=== PATIENT | female | born 1995 | race Caucasian/White ===

== ENCOUNTER 2023-01-20 13:40 | Emergency (ER) | payer MEDICAID, SELFPAY ==
--- NOTE | ~2023-01-20 | CT_ITS ---
EXAMINATION: CT ABDOMEN AND PELVIS WITHOUT CONTRAST CLINICAL INFORMATION: Patient ate a tampon. Abdominal pain. Rule out obstruction. COMPARISON: None available. TECHNIQUE: Multidetector volumetric imaging was performed from the superior aspect of the liver through the pubic symphysis. Sagittal and coronal reformatted images were obtained on the technologist's workstation. This CT examination was performed using dose optimization techniques as appropriate, variously including the following: *Automated exposure control *Adjustment of mA and/or kV according to patient size (this includes techniques or standardized protocols for targeted exams where dose is matched to indication/reason for exam; i.e. extremities or head) *Use of iterative reconstruction technique DLP: 962 mGy-cm FINDINGS: LUNG BASES: The visualized lung bases are unremarkable. LIVER, GALLBLADDER, AND BILIARY TREE: The liver is normal in size, shape, and attenuation. No focal hepatic lesion or biliary ductal dilatation is present. The gallbladder is unremarkable with no evidence of radiopaque gallstones, gallbladder wall thickening, or obvious pericholecystic inflammatory changes. PANCREAS: Unremarkable. SPLEEN: Unremarkable. ADRENAL GLANDS: Unremarkable. KIDNEYS AND URETERS: The kidneys are normal in size, shape, and attenuation. No hydronephrosis, hydroureter, or calculi seen. No perinephric stranding. BLADDER: Unremarkable. GASTROINTESTINAL TRACT: The small and large bowel are unremarkable. The appendix is unremarkable. ABDOMINAL WALL: No significant hernia is appreciated. LYMPH NODES: Normal. VASCULAR: Unremarkable. PELVIC VISCERA: Foci of air noted within the vagina. OSSEOUS STRUCTURES: Unremarkable. CT/CT abdomen pelvis wo IV con IMPRESSION: No evidence of bowel obstruction. Fleischner guidelines were followed.
[2023-01-20 13:49] VITALS: BP 140/80; PULSE 83; O2SAT 94
[2023-01-20 13:51] VITALS: BP 110/52; PULSE 74; RESP 16; TEMP 36.6; O2SAT 99; BMI 46.3
--- NOTE | 2023-01-20 13:52 | ED_ITS ---
HPI - Abdominal Pain General Chief Complaint: General Medical Stated Complaint: Abdominal Pain Time Seen by Provider: 01/20/23 13:49 Source: patient and EMS Mode of arrival: EMS Limitations: no limitations History of Present Illness HPI narrative: 27-year-old female with a past medical history of borderline personality disorder, PTSD, bipolar disorder here with complaints foreign body ingestion. Of her patient she swallowed a tampon last night and attempt to hurt herself. She is currently residing at [facility] and is there on a Section 12. No HI, AVH. C/o abdominal pain generalized, Has been able to eat and drink after ingesting the tampon. No vomiting. Last BM last evening. , Patient reports she has history of FB ingestions and has needed endoscopies before Related Data Allergies Allergy/AdvReac Type Severity Reaction Status Date / Time Unable to Assess Allergy Verified 01/20/23 13:54 Review of Systems Review of Systems Yes all other systems are reviewed and are negative Constitutional: Reports no additional constitutional complaints, Denies body ache(s), Denies chills, Denies fever(s), Denies headache(s) and Denies weakness Eyes: Reports no additional eye complaints and Denies change in vision Reports system reviewed and no additional complaints, except as documented, Denies dizziness, Denies headache(s), Denies nasal congestion, Denies nasal discharge and Denies neck pain Cardiovascular: Reports no additional cardiovascular complaints, Denies chest pain, Denies leg edema and Denies dyspnea Respiratory: Reports no additional respiratory complaints, Denies cough and Denies dyspnea Gastrointestinal: Reports no additional gastrointestinal complaints, Reports abdominal pain, Denies diarrhea, Denies nausea and Denies vomiting Genitourinary: Reports no additional female genitourinary complaints and Denies urinary incontinence Musculoskeletal: Reports no additional musculoskeletal complaints, Denies back pain, Denies arthralgias, Denies joint swelling, Denies neck pain, Denies numbness and Denies tingling Skin/Breast: Reports system reviewed and no additional complaints, except as docu and Denies rash Reports system reviewed and no additional complaints, except as documented, Denies dizziness, Denies headache(s), Denies numbness, Denies tingling and Denies weakness PMF Past Medical History Attestation statement: The following information was validated with the patient. Source: old records reviewed and nursing notes reviewed Social History Social History Advance Directives: No Physical Exam ED Vital Signs: Vital Signs - 24 hr 01/20/23 13:51 01/20/23 16:00 01/20/23 17:59 Temperature 97.8 F 98.2 F 99.5 F Pulse Rate 74 62 62 Respiratory Rate 16 16 16 Blood Pressure 110/52 L 115/63 112/57 L Pulse Oximetry 99 99 98 Oxygen Delivery Method Room Air Room Air Room Air BMI result Body Mass Index 46.3 Const General: cooperative, healthy appearing, comfortable and no acute distress Orientation/consciousness: patient oriented x3 Limitations: no limitations HENMT Head: Yes normal to inspection Ears: hearing grossly normal bilaterally Eyes General: appearance normal, both eyes and all related structures Pupils: Equal, round and reactive pupils present Neck Neck: Yes normal visual inspection Chest Chest palpation & inspection: normal inspection of the chest Resp Effort & Inspection: normal respiratory effort Auscultation: clear to auscultation bilaterally Cardio Rate: regular rate Rhythm: regular rhythm Peripheral pulses: Peripheral pulses 2+ throughout GI Inspection: Yes normal to inspection Palpation (GI): Soft to palpation and Tenderness to palpation present (GI) (mild diffuse tenderness ) Auscultation: normal bowel sounds General: Yes no CVA tenderness Back/Spine/Pelvis Back: no CVA tenderness Thoracic/Lumbar Spine: thoracic and lumbar spine normal to inspection Skin General skin exam: no rashes or lesions noted Neuro General: patient oriented x3 and moves all extremities Cranial nerves: Yes Equal, round and reactive pupils present Cognition (Neuro): normal cognition Gait exam (Neuro): Normal gait present Course Course Course Narrative: [id number] out to Celina WELDON pending imaging Reevaluation(s) Reevaluation #1: EXAMINATION: CT ABDOMEN AND PELVIS WITHOUT CONTRAST? CLINICAL INFORMATION: Patient ate a tampon. Abdominal pain. Rule out obstruction.? COMPARISON: None available. TECHNIQUE: Multidetector volumetric imaging was performed from the superior aspect of the liver through the pubic symphysis. Sagittal and coronal reformatted images were obtained on the technologist's workstation.? This CT examination was performed using dose optimization techniques as appropriate, variously including the following: *Automated exposure control *Adjustment of mA and/or kV according to patient size (this includes techniques or standardized protocols for targeted exams where dose is matched to indication/reason for exam; i.e. extremities or head) *Use of iterative reconstruction technique DLP: 962 mGy-cm FINDINGS: LUNG BASES: The visualized lung bases are unremarkable.? LIVER, GALLBLADDER, AND BILIARY TREE: The liver is normal in size, shape, and attenuation. No focal hepatic lesion or biliary ductal dilatation is present. The gallbladder is unremarkable with no evidence of radiopaque gallstones, gallbladder wall thickening, or obvious pericholecystic inflammatory changes.? PANCREAS: Unremarkable.? SPLEEN: Unremarkable.? ADRENAL GLANDS: Unremarkable.? KIDNEYS AND URETERS: The kidneys are normal in size, shape, and attenuation. No hydronephrosis, hydroureter, or calculi seen. No perinephric stranding. ? BLADDER: Unremarkable.? GASTROINTESTINAL TRACT: The small and large bowel are unremarkable. The appendix is unremarkable.? ABDOMINAL WALL: No significant hernia is appreciated.? LYMPH NODES: Normal. VASCULAR: Unremarkable. PELVIC VISCERA: Foci of air noted within the vagina.? OSSEOUS STRUCTURES: Unremarkable.? CT/CT abdomen pelvis wo IV con IMPRESSION: No evidence of bowel obstruction.? Stable for d/c back to [facility]. Tolerating PO. Time: 18:07 Medical Decision Making Medical Decision Making [facility] Narrative: 27-year-old female with a past medical history of borderline personality disorder, PTSD, bipolar disorder here with complaints foreign body ingestion.? Of her patient she swallowed a tampon last night and attempt to hurt herself.? She is currently residing at [facility] and is there on a Section 12. No HI, AVH.? C/o abdominal pain generalized, Has been able to eat and drink after ingesting the tampon. No vomiting. Last BM last evening. , Patient reports she has history of FB ingestions and has needed endoscopies before? On exam patient has mild tenderness diffusely with no rebound or guarding. Her abdomen is soft nondistended. Shows normal bowel sounds. D/w with attending physician. Low concern for esophageal impaction, SBO. Will obtain CT A/P, ur preg Differential Diagnosis Differential Diagnoses: The differential diagnosis associated with the presentation includes esophageal impaction, SBO Admission/Observation Consideration of admission/observation: Escalation of care including admission/observation considered Lab Data [facility] Lab Attestation statement: I reviewed the patient's lab results. Labs: Lab Results 01/20/23 Range/Units 16:16 Urine Test NEGATIVE (NEGATIVE) Independent Interpretation I performed an independent interpretation of an: CT Scan Radiology Impression Discussion of test interpretation with radiology: I have reviewed the radiologist's reading. Independent Historian Clinical information obtained from an independent historian. History obtained from or confirmed by: EMS Discharge Plan Discharge Clinical Impression: Abdominal pain Patient Disposition: Xfer Other Transfer Details: [facility] Instructions: Abdominal Pain (ED) Additional Instructions: Your CT scan was normal If you develop new or worsening symptoms call 911 or come back to the ER for further evaluation.
[2023-01-20 16:00] VITALS: BP 115/63; PULSE 62; RESP 16; TEMP 36.8; O2SAT 99
[2023-01-20 16:22] LABS: UPreg QC Valid YES; Urine Pregnancy NEGATIVE (NEGATIVE)
--- NOTE | 2023-01-20 17:48 | PC.NURSE ---
resting quietly in room, vss. awaiting results of ct scan at this time. coming in on [facility] from [facility], to return once medically cleared.
[2023-01-20 17:59] VITALS: BP 112/57; PULSE 62; RESP 16; TEMP 37.5; O2SAT 98
== END 2023-01-20 18:50 | disposition other institution (70) ==
PROVIDERS: Nurse Practitioner Family; Emergency Provider Emergency Medicine
DX: R10.84 Generalized abdominal pain (principal); Z03.821 Encounter for observation for suspected ingested foreign body ruled out; Z91.52 Personal history of nonsuicidal self-harm; F60.3 Borderline personality disorder; F43.10 Post-traumatic stress disorder, unspecified; F31.9 Bipolar disorder, unspecified
CPT/HCPCS: 74176; 81025; 99284